=== PATIENT | female | born 1965 | race Two or more races ===

== ENCOUNTER 2016-12-29 16:55 | Inpatient (IN) | payer OTHER ==
[~2016-12-29] VITALS: Ht 152.4 cm; Wt 57.0 kg
[~2016-12-29 16:55] MED LIST: APIX5TAB PO; GABA-531 PO; OXCA150T3 PO; OXYB5 PO; PROZ10 PO; RISP3 PO
[2016-12-29] MEDS ORDERED: ARIP10TA14 PO (17:50)
[2016-12-29] MEDS ORDERED: VITAD1000 PO (17:50)
[2016-12-29] MEDS ORDERED: SODIUM CHLORIDE 0.9% 1,000 ML IV ONE ×2 (19:00→19:30)
[2016-12-29] MEDS ORDERED: 0.9% SODIUM CHLORIDE 10 ML SYRINGE IVP PRN (19:00)
[2016-12-29 19:09] LABS: BASOPHILS # (AUTO) 0.01 K/uL (0.00-0.20); BASOPHILS % (AUTO) 0.1 % (0.0-2.0); EOSINOPHILS # (AUTO) 0.01 K/uL (0.00-0.70); EOSINOPHILS % (AUTO) 0.04 % (1.0-6.0); HEMATOCRIT 53.1 % (36-46); HEMOGLOBIN 17.7 g/dL (12.0-16.0); LYMPHOCYTES # (AUTO) 1.4 K/uL (1.0-4.8); LYMPHOCYTES % (AUTO) 8.8 % (22.0-44.0); MEAN CORPUSCULAR HEMOGLOBIN 30.4 pg (26.0-34.0); MEAN CORPUSCULAR HGB CONC 33.4 G/dL (31.0-37.0); MEAN CORPUSCULAR VOLUME 91 fL (80-100); MONOCYTES # (AUTO) 1.8 K/uL (0.1-1.0); MONOCYTES % (AUTO) 11.4 % (2.0-9.0); NEUTROPHILS # (AUTO) 12.4 K/uL (1.8-7.7); NEUTROPHILS % (AUTO) 79.7 % (40.0-70.0); PLATELET COUNT (AUTO) 199 K/uL (150-450); RED BLOOD CELL COUNT(AUTO) 5.83 MIL/uL (4.00-5.20); RED CELL DISTRIBUTION WIDTH 13.9 % (11.5-14.5); WHITE BLOOD COUNT (AUTO) 15.5 K/uL (4.5-11.0)
[2016-12-29 19:14] LABS: APPEARANCE,URINE CLOUDY (CLEAR); GLUCOSE, URINE (UA) NEGATIVE (NEGATIVE); KETONES,URINE TRACE mg/dL (NEGATIVE); LEUKOCYTE ESTERASE ,URINE SMALL (NEGATIVE); PH,URINE 5.5 (5.0-8.0); PROTEIN,URINE SEE CONFIRM (NEGATIVE)
[2016-12-29 19:20] LABS: INR 1.3 (0.9-1.1); PROTHROMBIN TIME 13.4 SEC (9.4-11.6)
[2016-12-29 19:26] LABS: ANION GAP 16 mmol/L (8-16); CALCIUM, TOTAL 10.1 mg/dL (8.8-10.5); CARBON DIOXIDE 26 mmol/L (22-29); CHLORIDE 111 mmol/L (98-107); CREATININE 1.65 mg/dL (0.60-1.30); GLOMERULAR FILTR. RATE CALC 33 mL/min (>60); POTASSIUM 3.7 mmol/L (3.5-5.1); SODIUM SERUM 153 mmol/L (136-145); UREA NITROGEN, BLOOD 48 mg/dL (7-18)
[2016-12-29 19:29] LABS: ADD UA MICROSCOPIC YES; OCCULT BLOOD,URINE MODERATE (NEGATIVE)
[2016-12-29 19:30] LABS: COARSE GRANULAR CASTS,URINE 0-2 /LPF (None Seen); FINE GRANULAR CASTS,URINE 0-2 /LPF (None Seen); SQUAMOUS EPITHELIAL CELL,UR Moderate /LPF (None Seen); SULFOSALICYLIC ACID,URINE 3+ (Negative)
[2016-12-29] MEDS ORDERED: *CLINICAL-CEFEPIME DOSING CLINICAL ONE ×2 (19:30)
[2016-12-29 19:49] LABS: ALANINE AMINOTRANSFERASE 59 U/L (12-78); ALBUMIN 3.8 g/dL (3.4-5.0); ASPARTATE AMINOTRANSFERASE 53 U/L (15-37); BILIRUBIN,TOTAL 0.6 mg/dL (0.1-1.0); CREATINE KINASE MB 2.3 ng/mL (0-5); CREATINE KINASE, TOTAL 742 U/L (26-192); TOTAL PROTEIN, SERUM 8.2 g/dL (6.4-8.2)
[2016-12-29 19:56] LABS: B-TYPE NATRIURETIC PEPTIDE 34 pg/mL (0-100)
[2016-12-29] MEDS ORDERED: ASPIRIN 325 MG TABLET PO ONE (20:00)
[2016-12-29] MEDS ORDERED: ACETAMINOPHEN 325 MG TABLET PO PRN (20:00)
[2016-12-29] MEDS ORDERED: ONDANSETRON HCL 4 MG/2 ML VIAL IVP PRN (20:00)
[2016-12-29] MEDS: CEFEPIME HCL 1 GM in DEXTROSE 5%-WATER 50 ML IV SCH (20:01)
[2016-12-29] MEDS ORDERED: VANCOMYCIN HCL 1.25 GM in DEXTROSE 5%-WATER 250 ML IV ONE (20:30)
[2016-12-29 22:32] VITALS: BP 107/72
[2016-12-29 23:51] VITALS: BP 116/69
[2016-12-30 03:51] VITALS: BP 107/56
[2016-12-30 05:53] LABS: INR 1.2 (0.9-1.1); PROTHROMBIN TIME 12.3 SEC (9.4-11.6)
[2016-12-30 05:57] LABS: BASOPHILS # (AUTO) 0.04 K/uL (0.00-0.20); BASOPHILS % (AUTO) 0.3 % (0.0-2.0); EOSINOPHILS # (AUTO) 0.02 K/uL (0.00-0.70); EOSINOPHILS % (AUTO) 0.11 % (1.0-6.0); HEMATOCRIT 42.1 % (36-46); HEMOGLOBIN 13.8 g/dL (12.0-16.0); LYMPHOCYTES # (AUTO) 2.4 K/uL (1.0-4.8); LYMPHOCYTES % (AUTO) 16.3 % (22.0-44.0); MEAN CORPUSCULAR HEMOGLOBIN 30.1 pg (26.0-34.0); MEAN CORPUSCULAR HGB CONC 32.9 G/dL (31.0-37.0); MEAN CORPUSCULAR VOLUME 92 fL (80-100); MONOCYTES # (AUTO) 1.4 K/uL (0.1-1.0); MONOCYTES % (AUTO) 9.8 % (2.0-9.0); NEUTROPHILS # (AUTO) 10.7 K/uL (1.8-7.7); NEUTROPHILS % (AUTO) 73.6 % (40.0-70.0); PLATELET COUNT (AUTO) 149 K/uL (150-450); RED BLOOD CELL COUNT(AUTO) 4.59 MIL/uL (4.00-5.20); RED CELL DISTRIBUTION WIDTH 13.4 % (11.5-14.5); WHITE BLOOD COUNT (AUTO) 14.6 K/uL (4.5-11.0)
[2016-12-30 06:24] LABS: ALANINE AMINOTRANSFERASE 51 U/L (12-78); ALBUMIN 3.1 g/dL (3.4-5.0); ANION GAP 14 mmol/L (8-16); ASPARTATE AMINOTRANSFERASE 47 U/L (15-37); BILIRUBIN,TOTAL 1.2 mg/dL (0.1-1.0); CARBON DIOXIDE 24 mmol/L (22-29); CHLORIDE 116 mmol/L (98-107); CREATININE 0.89 mg/dL (0.60-1.30); GLOMERULAR FILTR. RATE CALC > 60 mL/min (>60); POTASSIUM 3.2 mmol/L (3.5-5.1); SODIUM SERUM 154 mmol/L (136-145); TOTAL PROTEIN, SERUM 6.8 g/dL (6.4-8.2); UREA NITROGEN, BLOOD 28 mg/dL (7-18)
[2016-12-30] MEDS: CEFEPIME HCL 1 GM in DEXTROSE 5%-WATER 50 ML IV SCH ×2 (06:32→16:40)
[2016-12-30 07:11] VITALS: BP 114/68
[2016-12-30] MEDS ORDERED: VANCOMYCIN HCL 1 GM/D5% WATER 200 ML IV SCH ×3 (08:00→20:00)
[2016-12-30 11:24] VITALS: BP 128/45
[2016-12-30] MEDS ORDERED: ACETAMINOPHEN 325 MG TABLET PO PRN (14:45)
[2016-12-30] MEDS ORDERED: ONDANSETRON HCL 4 MG/2 ML VIAL IVP PRN (14:45)
[2016-12-30] MEDS ORDERED: HYDROCODONE/ACETAMINOPHEN 5-325 MG TABLET PO PRN (14:45)
[2016-12-30] MEDS: ARIPiprazole 10 MG TABLET PO SCH (14:45)
[2016-12-30 15:39] VITALS: BP 140/83
[2016-12-30] MEDS: SODIUM CHLORIDE 0.45% 1,000 ML IV SCH (16:42)
[2016-12-30] MEDS: GABAPENTIN 300 MG CAPSULE PO SCH ×2 (16:49→21:19)
[2016-12-30] MEDS: CHOLECALCIFEROL (VIT D3) 1,000 UNITS TABLET PO SCH (16:50)
[2016-12-30] MEDS: FLUoxetine HCL 20 MG CAPSULE PO SCH (16:52)
[2016-12-30] MEDS: OXYBUTYNIN CHLORIDE 5 MG TABLET PO SCH ×2 (16:53→21:19)
[2016-12-30] MEDS: APIXABAN 5 MG TABLET PO SCH ×2 (16:53→21:20)
[2016-12-30] MEDS: OXcarbazepine 300 MG TABLET PO SCH ×2 (16:53→21:19)
[2016-12-30 19:49] VITALS: BP 101/66
[2016-12-30] MEDS: VANCOMYCIN HCL 1 GM/D5% WATER 200 ML IV SCH (21:03)
[2016-12-30 23:49] VITALS: BP 100/60
[2016-12-31] MEDS: CEFEPIME HCL 1 GM in DEXTROSE 5%-WATER 50 ML IV SCH ×2 (02:41→15:11)
[2016-12-31 04:40] VITALS: BP 133/79
[2016-12-31] MEDS: SODIUM CHLORIDE 0.45% 1,000 ML IV SCH ×3 (06:01→23:10)
[2016-12-31 06:58] LABS: BASOPHILS % (AUTO) 0.2 % (0.0-2.0); EOSINOPHILS % (AUTO) 1.1 % (1.0-6.0); HEMATOCRIT 36.2 % (36-46); HEMOGLOBIN 12.4 g/dL (12.0-16.0); LYMPHOCYTES # (AUTO) 1.1 K/uL (1.0-4.8); LYMPHOCYTES % (AUTO) 8.7 % (22.0-44.0); MEAN CORPUSCULAR HEMOGLOBIN 31.1 pg (26.0-34.0); MEAN CORPUSCULAR HGB CONC 34.3 G/dL (31.0-37.0); MEAN CORPUSCULAR VOLUME 91 fL (80-100); MONOCYTES # (AUTO) 0.9 K/uL (0.1-1.0); MONOCYTES % (AUTO) 6.6 % (2.0-9.0); NEUTROPHILS # (AUTO) 10.8 K/uL (1.8-7.7); NEUTROPHILS % (AUTO) 83.4 % (40.0-70.0); PLATELET COUNT (AUTO) 130 K/uL (150-450); RED BLOOD CELL COUNT(AUTO) 3.99 MIL/uL (4.00-5.20); RED CELL DISTRIBUTION WIDTH 13.4 % (11.5-14.5); WHITE BLOOD COUNT (AUTO) 12.9 K/uL (4.5-11.0)
[2016-12-31 07:04] LABS: ANION GAP 9 mmol/L (8-16); CALCIUM, TOTAL 7.6 mg/dL (8.8-10.5); CARBON DIOXIDE 26 mmol/L (22-29); CHLORIDE 113 mmol/L (98-107); CREATININE 0.57 mg/dL (0.60-1.30); GLOMERULAR FILTR. RATE CALC > 60 mL/min (>60); POTASSIUM 3.3 mmol/L (3.5-5.1); SODIUM SERUM 148 mmol/L (136-145); UREA NITROGEN, BLOOD 23 mg/dL (7-18)
[2016-12-31 07:34] VITALS: BP 101/65
[2016-12-31] MEDS: VANCOMYCIN HCL 1 GM/D5% WATER 200 ML IV SCH ×2 (09:41→20:38)
[2016-12-31] MEDS: APIXABAN 5 MG TABLET PO SCH ×3 (09:42→21:00)
[2016-12-31] MEDS: FLUoxetine HCL 20 MG CAPSULE PO SCH (09:42)
[2016-12-31] MEDS: CHOLECALCIFEROL (VIT D3) 1,000 UNITS TABLET PO SCH (09:42)
[2016-12-31] MEDS: OXYBUTYNIN CHLORIDE 5 MG TABLET PO SCH ×3 (09:42→21:00)
[2016-12-31] MEDS: ARIPiprazole 10 MG TABLET PO SCH (09:42)
[2016-12-31] MEDS: GABAPENTIN 300 MG CAPSULE PO SCH ×3 (09:43→21:00)
[2016-12-31] MEDS: OXcarbazepine 300 MG TABLET PO SCH ×3 (09:43→21:00)
[2016-12-31 11:24] VITALS: BP 100/51
[2016-12-31 15:57] VITALS: BP 91/73
[2016-12-31] MEDS ORDERED: OXCA300T PO (16:00)
[2016-12-31] MEDS ORDERED: FLUO-191 PO (16:00)
[2016-12-31] MEDS ORDERED: POTASSIUM CHLORIDE 10% 40 MEQ/30 ML LIQUID UDCUP PO PRN (16:00)
[2016-12-31] MEDS: POTASSIUM CHLORIDE 20 MEQ ER TABLET PO PRN (16:47)
[2016-12-31 20:05] VITALS: BP 97/56
[2017-01-01] VITALS (7 sets, daily range): BP systolic 95–129; BP diastolic 46–74
[2017-01-01] MEDS: CEFEPIME HCL 1 GM in DEXTROSE 5%-WATER 50 ML IV SCH ×3 (03:23→20:12)
[2017-01-01 07:01] LABS: ANION GAP 8 mmol/L (8-16); CALCIUM, TOTAL 8.1 mg/dL (8.8-10.5); CARBON DIOXIDE 24 mmol/L (22-29); CHLORIDE 108 mmol/L (98-107); CREATININE 0.46 mg/dL (0.60-1.30); GLOMERULAR FILTR. RATE CALC > 60 mL/min (>60); POTASSIUM 4.9 mmol/L (3.5-5.1); SODIUM SERUM 140 mmol/L (136-145); UREA NITROGEN, BLOOD 13 mg/dL (7-18)
[2017-01-01] MEDS: ARIPiprazole 10 MG TABLET PO SCH (09:01)
[2017-01-01] MEDS: OXcarbazepine 300 MG TABLET PO SCH ×2 (09:01→20:23)
[2017-01-01] MEDS: FLUoxetine HCL 20 MG CAPSULE PO SCH (09:01)
[2017-01-01] MEDS: CHOLECALCIFEROL (VIT D3) 1,000 UNITS TABLET PO SCH (09:01)
[2017-01-01] MEDS: APIXABAN 5 MG TABLET PO SCH ×2 (09:01→20:22)
[2017-01-01] MEDS: GABAPENTIN 300 MG CAPSULE PO SCH ×2 (09:01→20:22)
[2017-01-01] MEDS: VANCOMYCIN HCL 1 GM/D5% WATER 200 ML IV SCH ×2 (09:01→17:19)
[2017-01-01] MEDS: OXYBUTYNIN CHLORIDE 5 MG TABLET PO SCH ×2 (09:01→20:22)
[2017-01-01] MEDS: SODIUM CHLORIDE 0.45% 1,000 ML IV SCH (17:19)
[2017-01-02] MEDS: VANCOMYCIN HCL 1 GM/D5% WATER 200 ML IV SCH ×3 (01:13→15:59)
[2017-01-02] MEDS: CEFEPIME HCL 1 GM in DEXTROSE 5%-WATER 50 ML IV SCH ×3 (03:35→21:03)
[2017-01-02 05:16] VITALS: BP 102/52
[2017-01-02] MEDS: SODIUM CHLORIDE 0.45% 1,000 ML IV SCH ×3 (06:08→16:25)
[2017-01-02 07:30] LABS: BASOPHILS # (AUTO) 0.02 K/uL (0.00-0.20); BASOPHILS % (AUTO) 0.2 % (0.0-2.0); EOSINOPHILS % (AUTO) 0.05 % (1.0-6.0); HEMATOCRIT 38.8 % (36-46); HEMOGLOBIN 12.9 g/dL (12.0-16.0); LYMPHOCYTES % (AUTO) 10.9 % (22.0-44.0); MEAN CORPUSCULAR HEMOGLOBIN 30.3 pg (26.0-34.0); MEAN CORPUSCULAR HGB CONC 33.3 G/dL (31.0-37.0); MEAN CORPUSCULAR VOLUME 91 fL (80-100); MONOCYTES # (AUTO) 0.7 K/uL (0.1-1.0); MONOCYTES % (AUTO) 6.8 % (2.0-9.0); NEUTROPHILS # (AUTO) 7.8 K/uL (1.8-7.7); NEUTROPHILS % (AUTO) 82.1 % (40.0-70.0); PLATELET COUNT (AUTO) 123 K/uL (150-450); RED BLOOD CELL COUNT(AUTO) 4.26 MIL/uL (4.00-5.20); RED CELL DISTRIBUTION WIDTH 13.5 % (11.5-14.5)
[2017-01-02 07:36] VITALS: BP 103/69
[2017-01-02 07:37] LABS: ANION GAP 10 mmol/L (8-16); CALCIUM, TOTAL 8.6 mg/dL (8.8-10.5); CARBON DIOXIDE 24 mmol/L (22-29); CHLORIDE 109 mmol/L (98-107); CREATININE 0.52 mg/dL (0.60-1.30); GLOMERULAR FILTR. RATE CALC > 60 mL/min (>60); POTASSIUM 3.8 mmol/L (3.5-5.1); SODIUM SERUM 143 mmol/L (136-145); UREA NITROGEN, BLOOD 4 mg/dL (7-18)
[2017-01-02 07:45] LABS: WHITE BLOOD COUNT (AUTO) 10.8 K/uL (4.5-11.0)
[2017-01-02] MEDS: ARIPiprazole 10 MG TABLET PO SCH (08:54)
[2017-01-02] MEDS: APIXABAN 5 MG TABLET PO SCH ×2 (08:55→21:00)
[2017-01-02] MEDS: OXcarbazepine 300 MG TABLET PO SCH ×2 (08:55→21:00)
[2017-01-02] MEDS: GABAPENTIN 300 MG CAPSULE PO SCH ×2 (08:55→21:00)
[2017-01-02] MEDS: FLUoxetine HCL 20 MG CAPSULE PO SCH (08:55)
[2017-01-02] MEDS: OXYBUTYNIN CHLORIDE 5 MG TABLET PO SCH ×2 (08:55→21:00)
[2017-01-02] MEDS: CHOLECALCIFEROL (VIT D3) 1,000 UNITS TABLET PO SCH (08:56)
[2017-01-02 12:02] VITALS: BP 112/60
[2017-01-02] MEDS ORDERED: CIPR250S4 PO (15:33)
[2017-01-02] MEDS ORDERED: CIPR500S4 PO (15:34)
[2017-01-02 17:49] VITALS: BP 123/90
[2017-01-02 19:42] VITALS: BP 116/62
[2017-01-02 23:56] VITALS: BP 112/64
[2017-01-03] MEDS: VANCOMYCIN HCL 1 GM/D5% WATER 200 ML IV SCH ×3 (00:19→16:13)
[2017-01-03] MEDS: CEFEPIME HCL 1 GM in DEXTROSE 5%-WATER 50 ML IV SCH ×3 (03:14→21:04)
[2017-01-03 05:26] VITALS: BP 106/60
[2017-01-03] MEDS: SODIUM CHLORIDE 0.45% 1,000 ML IV SCH ×3 (06:12→23:38)
[2017-01-03 06:45] LABS: ANION GAP 7 mmol/L (8-16); CALCIUM, TOTAL 8.5 mg/dL (8.8-10.5); CARBON DIOXIDE 28 mmol/L (22-29); CHLORIDE 106 mmol/L (98-107); CREATININE 0.54 mg/dL (0.60-1.30); GLOMERULAR FILTR. RATE CALC > 60 mL/min (>60); POTASSIUM 3.3 mmol/L (3.5-5.1); SODIUM SERUM 141 mmol/L (136-145); UREA NITROGEN, BLOOD 2 mg/dL (7-18)
[2017-01-03 07:29] VITALS: BP 113/65
[2017-01-03] MEDS: POTASSIUM CHLORIDE 20 MEQ ER TABLET PO PRN (08:46)
[2017-01-03] MEDS: GABAPENTIN 300 MG CAPSULE PO SCH ×2 (09:00→21:21)
[2017-01-03] MEDS: ARIPiprazole 10 MG TABLET PO SCH (09:00)
[2017-01-03] MEDS: CHOLECALCIFEROL (VIT D3) 1,000 UNITS TABLET PO SCH (09:00)
[2017-01-03] MEDS: OXYBUTYNIN CHLORIDE 5 MG TABLET PO SCH ×2 (09:00→21:21)
[2017-01-03] MEDS: FLUoxetine HCL 20 MG CAPSULE PO SCH (09:00)
[2017-01-03] MEDS: APIXABAN 5 MG TABLET PO SCH ×2 (09:00→21:21)
[2017-01-03] MEDS: OXcarbazepine 300 MG TABLET PO SCH ×2 (09:00→21:21)
[2017-01-03 11:50] VITALS: BP 106/46
[2017-01-03 15:35] VITALS: BP 118/69
[2017-01-03 20:12] VITALS: BP 119/83
[2017-01-03 23:54] VITALS: BP 112/64
[2017-01-04] VITALS (7 sets, daily range): BP systolic 100–116; BP diastolic 49–71
[2017-01-04] MEDS: VANCOMYCIN HCL 1 GM/D5% WATER 200 ML IV SCH ×4 (00:15→23:18)
[2017-01-04] MEDS: CEFEPIME HCL 1 GM in DEXTROSE 5%-WATER 50 ML IV SCH ×3 (03:39→20:23)
[2017-01-04 06:37] LABS: ANION GAP 8 mmol/L (8-16); CALCIUM, TOTAL 7.4 mg/dL (8.8-10.5); CARBON DIOXIDE 24 mmol/L (22-29); CHLORIDE 102 mmol/L (98-107); CREATININE 0.48 mg/dL (0.60-1.30); GLOMERULAR FILTR. RATE CALC > 60 mL/min (>60); SODIUM SERUM 134 mmol/L (136-145); UREA NITROGEN, BLOOD 1 mg/dL (7-18)
[2017-01-04] MEDS ORDERED: SODIUM CHLORIDE 0.9% 1,000 ML IV ONE (08:50)
[2017-01-04] MEDS: FLUoxetine HCL 20 MG CAPSULE PO SCH (09:00)
[2017-01-04] MEDS: ARIPiprazole 10 MG TABLET PO SCH (09:00)
[2017-01-04] MEDS: OXcarbazepine 300 MG TABLET PO SCH ×2 (09:00→20:25)
[2017-01-04] MEDS: GABAPENTIN 300 MG CAPSULE PO SCH ×2 (09:00→20:24)
[2017-01-04] MEDS: APIXABAN 5 MG TABLET PO SCH ×2 (09:00→20:24)
[2017-01-04] MEDS: OXYBUTYNIN CHLORIDE 5 MG TABLET PO SCH ×2 (09:00→20:24)
[2017-01-04] MEDS: CHOLECALCIFEROL (VIT D3) 1,000 UNITS TABLET PO SCH (09:00)
[2017-01-04] MEDS: SODIUM CHLORIDE 0.45% 1,000 ML IV SCH ×2 (14:00→20:23)
[2017-01-04] MEDS: POTASSIUM CHL 10 MEQ/WATER 50 ML IV PRN ×4 (15:16→18:36)
[2017-01-05] MEDS: CEFEPIME HCL 1 GM in DEXTROSE 5%-WATER 50 ML IV SCH ×2 (03:31→13:11)
[2017-01-05 04:31] VITALS: BP 105/71
[2017-01-05] MEDS: SODIUM CHLORIDE 0.45% 1,000 ML IV SCH ×2 (05:40→15:09)
[2017-01-05 07:20] LABS: ANION GAP 11 mmol/L (8-16); CALCIUM, TOTAL 8.3 mg/dL (8.8-10.5); CARBON DIOXIDE 24 mmol/L (22-29); CHLORIDE 104 mmol/L (98-107); GLOMERULAR FILTR. RATE CALC > 60 mL/min (>60); POTASSIUM 3.8 mmol/L (3.5-5.1); SODIUM SERUM 139 mmol/L (136-145); UREA NITROGEN, BLOOD 3 mg/dL (7-18)
[2017-01-05 07:57] VITALS: BP 113/63
[2017-01-05] MEDS: FLUoxetine HCL 20 MG CAPSULE PO SCH (09:00)
[2017-01-05] MEDS: OXYBUTYNIN CHLORIDE 5 MG TABLET PO SCH (09:00)
[2017-01-05] MEDS: APIXABAN 5 MG TABLET PO SCH (09:00)
[2017-01-05] MEDS: ARIPiprazole 10 MG TABLET PO SCH (09:00)
[2017-01-05] MEDS: GABAPENTIN 300 MG CAPSULE PO SCH ×2 (09:00→09:21)
[2017-01-05] MEDS: OXcarbazepine 300 MG TABLET PO SCH (09:00)
[2017-01-05] MEDS: CHOLECALCIFEROL (VIT D3) 1,000 UNITS TABLET PO SCH ×2 (09:00→09:21)
[2017-01-05] MEDS: VANCOMYCIN HCL 1 GM/D5% WATER 200 ML IV SCH ×2 (09:04→15:10)
[2017-01-05 11:36] VITALS: BP 117/59
[2017-01-05 15:43] VITALS: BP 120/58
[2017-01-05] MEDS ORDERED: CEFE2I IV (17:58)
[2017-01-05] MEDS ORDERED: [UNRECOGNIZED DRUG - CODE] IV (18:00)
[2017-01-05] MEDS ORDERED: VANC1IV IV (18:01)
[2017-01-05] MEDS ORDERED: HYDR-309 PO (18:02)
[2017-01-05] MEDS ORDERED: ACET-784 PO (18:02)
[2017-01-05] MEDS ORDERED: ONDA220I IV (18:03)
== END 2017-01-05 19:20 | disposition short-term general hospital (02) | DRG 871 ==
LOC: EMS 17:00 → 5N 20:17
PROVIDERS: ADMIT Family Medicine; ATTEND Family Medicine
DX: A41.9 Sepsis, unspecified organism (principal); N17.0 Acute kidney failure with tubular necrosis; G93.40 Encephalopathy, unspecified; E44.1 Mild protein-calorie malnutrition; E87.0 Hyperosmolality and hypernatremia; I24.8 Other forms of acute ischemic heart disease; N39.0 Urinary tract infection, site not specified; F20.9 Schizophrenia, unspecified; M19.90 Unspecified osteoarthritis, unspecified site; F79 Unspecified intellectual disabilities; G40.909 Epilepsy, unspecified, not intractable, without status epilepticus; Z68.24 Body mass index [BMI] 24.0-24.9, adult; Z79.01 Long term (current) use of anticoagulants; Z79.899 Other long term (current) drug therapy; Z86.711 Personal history of pulmonary embolism
CPT/HCPCS: 51702; 82248; 83605; 83735; 84132; 87040; 87086; 92610; 93005; 96374; 99291; J0692; J3370; J3480; J7030; J7060

== ENCOUNTER 2017-01-25 09:24 | Emergency (ER) | payer OTHER ==
[~2017-01-25] VITALS: Ht 152.4 cm; Wt 61.5 kg
[~2017-01-25 09:24] MED LIST changes: +ACET-784 PO; +ARIP10TA14 PO; +CEFE2I IV; +FLUO-191 PO; +HYDR-309 PO; +ONDA220I IV; -OXCA150T3 PO; +OXCA300T PO; -PROZ10 PO; -RISP3 PO; +VANC1IV IV; +VITAD1000 PO; +[UNRECOGNIZED DRUG - CODE] IV
[2017-01-25 10:20] LABS: ABG A-A DIFF O2 130.4 mmHg (10-20.0); ABG BASE EXCESS 5.8 mmol/L (-2.0-3.0); ABG HCO3 29.6 mmol/L (22.0-26.0); ABG OXYHEMOGLOBIN 94.8 % (94.0-100.0); ABG PCO2 37 mmHg (35-45); ABG PH 7.511 (7.35-7.450); TEMPERATURE, FAHRENHEIT, BG 98.6 FAHREN (96.0-98.6)
[2017-01-25 10:21] LABS: ALLEN TEST, BLOOD GAS Positive
[2017-01-25 10:31] LABS: BASOPHILS # (AUTO) 0.06 K/uL (0.00-0.20); BASOPHILS % (AUTO) 0.5 % (0.0-2.0); EOSINOPHILS % (AUTO) 0.04 % (1.0-6.0); HEMATOCRIT 45.6 % (36-46); HEMOGLOBIN 15.3 g/dL (12.0-16.0); LYMPHOCYTES # (AUTO) 1.7 K/uL (1.0-4.8); LYMPHOCYTES % (AUTO) 13.2 % (22.0-44.0); MEAN CORPUSCULAR HEMOGLOBIN 30.6 pg (26.0-34.0); MEAN CORPUSCULAR HGB CONC 33.6 G/dL (31.0-37.0); MEAN CORPUSCULAR VOLUME 91 fL (80-100); MONOCYTES # (AUTO) 1.4 K/uL (0.1-1.0); MONOCYTES % (AUTO) 10.8 % (2.0-9.0); NEUTROPHILS # (AUTO) 9.7 K/uL (1.8-7.7); NEUTROPHILS % (AUTO) 75.5 % (40.0-70.0); PLATELET COUNT (AUTO) 234 K/uL (150-450); RED BLOOD CELL COUNT(AUTO) 4.99 MIL/uL (4.00-5.20); RED CELL DISTRIBUTION WIDTH 13.5 % (11.5-14.5); WHITE BLOOD COUNT (AUTO) 12.8 K/uL (4.5-11.0)
[2017-01-25 10:37] LABS: ANION GAP 10 mmol/L (8-16); CALCIUM, TOTAL 9.2 mg/dL (8.8-10.5); CARBON DIOXIDE 31 mmol/L (22-29); CHLORIDE 105 mmol/L (98-107); CREATININE 0.93 mg/dL (0.60-1.30); GLOMERULAR FILTR. RATE CALC > 60 mL/min (>60); POTASSIUM 3.8 mmol/L (3.5-5.1); SODIUM SERUM 146 mmol/L (136-145); UREA NITROGEN, BLOOD 26 mg/dL (7-18)
[2017-01-25 10:45] LABS: LACTIC ACID 1.9 mmol/L (0.4-2.0)
[2017-01-25 10:50] LABS: B-TYPE NATRIURETIC PEPTIDE 15 pg/mL (0-100)
[2017-01-25 11:02] LABS: ALANINE AMINOTRANSFERASE 63 U/L (12-78); ALBUMIN 3.8 g/dL (3.4-5.0); ASPARTATE AMINOTRANSFERASE 50 U/L (15-37); BILIRUBIN,TOTAL 1.1 mg/dL (0.1-1.0); CREATINE KINASE MB 1.4 ng/mL (0-5); CREATINE KINASE, TOTAL 736 U/L (26-192); TOTAL PROTEIN, SERUM 7.9 g/dL (6.4-8.2)
[2017-01-25 11:11] LABS: APPEARANCE,URINE CLEAR (CLEAR); GLUCOSE, URINE (UA) NEGATIVE (NEGATIVE); KETONES,URINE NEGATIVE (NEGATIVE); LEUKOCYTE ESTERASE ,URINE NEGATIVE (NEGATIVE); OCCULT BLOOD,URINE SMALL (NEGATIVE); PH,URINE 6.5 (5.0-8.0); PROTEIN,URINE POS 1+ (NEGATIVE)
[2017-01-25 11:20] LABS: ADD UA MICROSCOPIC YES
[2017-01-25 11:33] LABS: RBC,URINE 0-2 /HPF (0-2); SQUAMOUS EPITHELIAL CELL,UR Moderate /LPF (None Seen)
[2017-01-25] MEDS ORDERED: CefTRIAXone 1 GM/DEXTROSE 50 ML IV ONE (11:45)
[2017-01-25] MEDS ORDERED: AZITHROMYCIN 500 MG/NS 250 ML IV ONE (11:45)
[2017-01-25] MEDS ORDERED: SODIUM CHLORIDE 0.9% 1,000 ML IV ONE (12:00)
[2017-01-25 14:05] VITALS: BP 129/63
== END 2017-01-25 15:53 | disposition short-term general hospital (02) ==
LOC: EMS 09:26
DX: R09.02 Hypoxemia (principal); R06.00 Dyspnea, unspecified; J98.8 Other specified respiratory disorders; F79 Unspecified intellectual disabilities; L25.8 Unspecified contact dermatitis due to other agents
CPT/HCPCS: 36415; 71010; 80053; 81001; 82550; 82553; 82805; 83605; 83880; 84484; 85025; 87040; 93005; 96365; 96366; 96368; 99291; J0456; J0696; J7030; 87205

== ENCOUNTER → 2017-04-23 | Outpatient (CLI) | payer OTHER ==
[~2017-04-23] MED LIST changes: -ARIP10TA14 PO; +ARIP10TA8 PO; -CEFE2I IV; -VANC1IV IV
== END | disposition home or self-care (01) ==
LOC: RADPV 10:26
PROVIDERS: ATTEND Internal Medicine
DX: R74.8 Abnormal levels of other serum enzymes (principal)
CPT/HCPCS: 76700

== ENCOUNTER 2024-08-03 06:59 | Emergency (ER) | payer MEDICARE, OTHER ==
[~2024-08-03] VITALS: Ht 144.8 cm; Wt 45.5 kg
[~2024-08-03 06:59] MED LIST changes: +ARIP10TA38 PO; -ARIP10TA8 PO; +CHOL100018 PO; +FLUO-177 PO; -FLUO-191 PO; +GABA-1181 PO; -GABA-531 PO; -OXCA300T PO; +OXCA300T70 PO; -OXYB5 PO; +OXYB5TAB20 PO; -VITAD1000 PO
[2024-08-03 07:02] VITALS: BP 0/0; PULSE 0; RESP 8; O2SAT 75
== END 2024-08-03 12:00 ==
LOC: EMS 07:05
DX: I46.9 Cardiac arrest, cause unspecified (principal); F20.9 Schizophrenia, unspecified; F79 Unspecified intellectual disabilities; G40.909 Epilepsy, unspecified, not intractable, without status epilepticus; Z79.01 Long term (current) use of anticoagulants; Z79.899 Other long term (current) drug therapy
CPT/HCPCS: 31500; 36680; 92950; 99285; Z7502